=== PATIENT | male | born 1995 | race Two or more races ===

== ENCOUNTER → 2025-01-08 | Emergency (ER) | payer SELFPAY ==
[~2025-01-08] VITALS: Ht 177.8 cm; Wt 85.0 kg
[2025-01-08 02:36] VITALS: BP 130/75; PULSE 79; RESP 24; TEMP 98.8; O2SAT 100
== END | disposition still patient (30) ==
LOC: EMS 02:34
DX: T40.411A Poisoning by fentanyl or fentanyl analogs, accidental (unintentional), initial encounter (principal); F11.90 Opioid use, unspecified, uncomplicated; Y92.89 Other specified places as the place of occurrence of the external cause
CPT/HCPCS: 99283; Z7502